=== PATIENT | female | born 2000 | race Caucasian/White ===

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

== ENCOUNTER 2022-05-06 12:05 | Emergency (ER) | payer OTHER, SELFPAY ==
[2022-05-06 12:06] VITALS: BP 122/68; PULSE 100; RESP 16; TEMP 37; O2SAT 98; BMI 21.7
[2022-05-06 12:30] VITALS: BP 113/69; PULSE 103; RESP 20; O2SAT 100
[2022-05-06 12:30] LABS: Microscopic, Urine URINE MICROSCOPIC (MICROSCOPIC)
[2022-05-06 12:39] LABS: Appearance,Urine CLEAR (Clear); Bilirubin,Urine Negative (Negative); Blood, Urine Negative (Negative); Color,Urine YELLOW (Yellow); Glucose,Urine (UA) Negative (Negative); Ketones,Urine Negative (Negative); Leukocyte Esterase,Urine 1+ (Negative); Nitrate,Urine Negative (Negative); Protein,Urine Negative (Negative); Specific Gravity, Urine >= 1.030 (1.005-1.030); Urobilinogen,Urine 0.2 EU/dl (0.2)
[2022-05-06 12:40] LABS: Urine Pregnancy, HCG Qual. Negative (Negative)
[2022-05-06 12:51] LABS: Bacteria,Urine Trace /lpf
[2022-05-06 12:53] LABS: Basophils % 0.5 % (0.1-2.0); Eosinophils # 0.2 K/mm3 (0.0-0.4); Hematocrit 41.5 % (37.0-47.0); Hemoglobin 13.7 g/dL (12.2-16.2); Lymphocytes # 1.5 K/mm3 (0.7-4.5); Lymphocytes % 28.8 % (10-50); Mean Corpuscular HGB Conc 32.9 g/dL (31.8-35.4); Mean Corpuscular Hemoglobin 30.3 pg (27.0-31.2); Mean Corpuscular Volume 91.9 fl (81-99); Monocytes # 0.3 K/mm3 (0.1-1.0); Monocytes % 5.5 % (1.7-9.3); Neutrophils # 3.2 K/mm3 (1.8-7.8); Neutrophils % 62.3 % (37.0-80.0); Platelet Count 151 K/mm3 (142-424); Red Blood Count 4.52 M/mm3 (4.20-5.40); Red Cell Distribution Width 13.9 % (11.5-17.5); White Blood Count 5.2 K/mm3 (4.5-13.0)
--- NOTE | 2022-05-06 13:08 | PC.NURSE ---
Linda Bradshaw rounded on pt , no needs at this time
[2022-05-06 13:09] LABS: Chloride 102 mmol/L (98-107)
[2022-05-06 13:10] LABS: Potassium 3.8 mmoL/L (3.5-5.1); Sodium 138 mmol/L (136-145)
[2022-05-06 13:12] LABS: Alanine Aminotransferase 41 U/L (12-78); Amylase 85 U/L (30-110); Anion Gap 12.8 mEq/L (5-15); Aspartate Amino Transferase 48 U/L (14-36); Blood Urea Nitrogen 11 mg/dl (7-17); Carbon Dioxide 27 mmol/L (22.0-30.0); Creatinine Clearance Estimated 103 mL/min (50-200); Estimated Glomerular Filt Rate 108 ml/min (>60); GFR (African American) 130 ML/MIN (>60)
[2022-05-06 13:13] LABS: Albumin Level 4.3 g/dl (3.5-5.0); Albumin/Globulin Ratio 1.6 (1.1-1.8); Alkaline Phosphatase 65 U/L (38-126); Bilirubin,Total 0.5 mg/dl (0.2-1.3); Calcium 8.6 mg/dl (8.4-10.2); Globulin 2.7 g/dL (1.3-3.2); Glucose 80 mg/dl (74-100); Lipase 68 U/L (23-300)
--- NOTE | 2022-05-06 13:39 | HMH.EDGENADL ---
Discharge Plan Disposition Patient Disposition: Home, Self-Care Condition: Good Referrals Follow up/Referrals: Mohan Kirkpatrick MD [Primary Care Provider] - See instructions Activity Restrictions/Add. Instructions Additional Instructions/Restrictions: MiraLAX as prescribed. Urine culture has been performed, results generally take 2 to 3 days. Follow-up the results of this test with your primary care provider within 2 to 3 days. Additional instructions for ABDOMINAL PAIN: See your physician as soon as possible for further evaluation. Return immediately if worsening abdominal pain, vomiting, shortness of breath, fever, vomiting of blood or abdominal distention. Clinical Impressions Clinical Impression: Abdominal pain Instructions Patient Instructions: DI for Acute Abdominal Pain Discharge ED Provider: Layton Whitlock General Adult HPI General Chief complaint: Abdominal Pain Stated complaint: abdominal pain Time Seen by Provider: 05/06/22 13:30 Mode of Arrival: Ambulatory Source of Information: Patient Limitations: No Limitations Description of Symptoms (Recalled from ER Triage Doc. by RN): Pt c/o RLQ pain since last night before laying down to go to bed. Denies N/V/D. Pt states that she has not had a BM x2 days. History of Present Illness HPI narrative: Complains of lower abdominal pain that began last night. No nausea, vomiting, diarrhea. No fever. No urinary symptoms. No change in appetite. Last bowel movement 2 days ago. Patient says that she thinks her current pain might be due to constipation or irritable bowel syndrome. She says she has had the same pain recurrently in the past and has had a work-up including a CT scan. She says that since laying here in the emergency department her pain has gone away. No prior abdominal surgeries. Related Data Allergies Allergy/AdvReac Type Severity Reaction Status Date / Time Codeine Allergy Intermediate I-RASH Uncoded 07/21/17 15:13 Ibuprofen Allergy Intermediate I-RASH Uncoded 07/21/17 15:13 [facility] Social History Smoking Status: Never smoker alcohol intake: never current occupational status: employed Travel in the last 8 weeks: None ROS Obtained: Yes Systems reviewed as appropriate & no additional complaints except as documented Constitutional Constitutional: Denies fever(s) Gastrointestinal Gastrointestingal: Reports abdominal pain and constipation; Denies diarrhea, nausea or vomiting Genitourinary Female Genitourinary: Denies difficulty voiding, Denies dysuria and Denies flank pain Musculoskeletal Musculoskeletal: Denies numbness Neurologic Neurologic: Denies numbness Physical Exam General General appearance: alert and in no apparent distress Head Head exam: atraumatic and normocephalic Eye Eye exam: Present normal appearance and EOMI ENT ENT exam: Present mucous membranes moist Neck Neck exam: Present normal inspection and trachea midline Chest Chest inspection: Present normal inspection and symmetric chest wall rise Respiratory Respiratory exam: Present normal lung sounds bilaterally; Absent respiratory distress Cardiovascular Cardiovascular exam: Present regular rate, normal rhythm and normal heart sounds Abdominal Exam Abdominal exam: Present soft, tenderness and hyperactive bowel sounds; Absent distention, guarding, rebound or rigidity Abdominal tenderness: Present RLQ, LLQ and suprapubic Extremities Exam Extremities exam: Present normal inspection Neurological Exam Neurological exam: Present alert and oriented X3 Psychiatric Psychiatric exam: Present normal affect and normal mood Skin Skin exam: Present warm and dry Medical Decision Making Pierce Inquiry Pt receiving controlled substance: No Vital Signs: 05/06/22 12:06 05/06/22 12:30 Temperature 98.6 F Temperature Source Oral Pulse Rate 103 H Pulse Rate [Right Radial] 100 H Respiratory Rate 16 20 Blood Pressure 113/69 Blood Pressure [Right Arm] 1
[2022-05-06 13:47] VITALS: BP 119/65; PULSE 102; RESP 18; TEMP 36.8; O2SAT 98
== END 2022-05-06 13:49 | disposition home or self-care (01) ==
PROVIDERS: Emergency Provider Emergency Medicine; PCP Internal Medicine Adolescent Medicine
DX: R10.30 Lower abdominal pain, unspecified (principal); Z88.6 Allergy status to analgesic agent
CPT/HCPCS: 80053; 81001; 81025; 82150; 83690; 85025; 87086; 99282

== ENCOUNTER 2022-05-12 14:06 | Emergency (ER) | payer OTHER, SELFPAY ==
[2022-05-12 15:00] VITALS: BP 113/65; PULSE 101; RESP 19; TEMP 37.3; O2SAT 99; BMI 21.4
--- NOTE | 2022-05-12 15:23 | EXP.UTC ---
Discharge Plan Disposition Patient Disposition: Home, Self-Care Condition: Good Prescriptions Prescriptions: New amoxicillin 500 mg tablet 500 mg PO TID Qty: 30 0RF fluticasone propionate [Flonase Allergy Relief] 50 mcg/actuation spray,suspension 1 spray intranasal DAILY Qty: 16 0RF Rx Instructions: administer into each nostril Referrals Follow up/Referrals: Mohan Kirkpatrick MD [Primary Care Provider] - See instructions Activity Restrictions/Add. Instructions Additional Instructions/Restrictions: Take medication as prescribed Return if needed Straight to ER if any life threatening symptoms Follow up with Family Doctor if no improvement or any worsening of symptoms Clinical Impressions Clinical Impression: Otitis media Instructions Patient Instructions: Middle Ear Infection, Amoxicillin Discharge ED Provider: Shaye Gonsalez [facility] General Stated complaint: LT ear pain Mode of Arrival: Ambulatory Source of Information: Patient Limitations: No Limitations Time Seen by Provider: 05/12/22 15:23 Description of Symptoms (Recalled from Triage Doc. by RN): PATIENT C/O LEFT INNER EAR PAIN THAT STARTED THIS MORNING HEENT Symptoms (Recalled from RN notes): Yes Resp Symptoms (Recalled from RN notes): No Skin Symptoms (Recalled from RN notes): No MS Symptoms (Recalled from RN notes): No Functional Status (Recalled from RN notes): WNL History of Present Illness Provider Complaint: Patient states that she has been having pain in her left ear on and off and worse this morning states that now her left ear is throbbing so she came in to get it cehcked out Related Data Previous Rx's Medication Instructions Recorded amoxicillin 500 mg tablet 500 mg PO TID #30 tabs 05/12/22 fluticasone propionate 50 1 spray intranasal DAILY #16 grams 05/12/22 mcg/actuation nasal spray,suspension (Flonase Allergy Relief) Allergies Allergy/AdvReac Type Severity Reaction Status Date / Time codeine Allergy Verified 05/12/22 15:11 ibuprofen Allergy Verified 05/12/22 15:11 Worker's Comp Is this a Worker's Comp case?: No [facility] Medical History (Updated 05/12/22 @ 15:35 by Shaye Gonsalez APRN) No significant past medical history Social History (Updated 05/12/22 @ 15:11 by Anna Palma RN) Smoking Status: Never smoker alcohol intake: never current occupational status: employed Travel in the last 8 weeks: None ROS Obtained: Yes All systems reviewed & no additional complaints except as documented and Yes Systems reviewed as appropriate & no additional complaints except as documented Constitutional Constitutional: Reports system reviewed and no additional complaints, except as documented and Reports as per HPI ENT Ears, Nose, Mouth, and Throat: Reports system reviewed and no additional complaints, except as documented, Reports as per HPI and Reports otalgia Cardiovascular Cardiovascular: Reports system reviewed and no additional complaints, except as documented and Reports as per HPI Respiratory Respiratory: Reports system reviewed and no additional complaints, except as documented and Reports as per HPI Musculoskeletal Musculoskeletal: Reports system reviewed and no additional complaints, except as documented and Reports as per HPI Physical Exam General General appearance: alert and in no apparent distress Expanded ENT Exam TM/Canal exam: Left TM: erythema and loss of landmarks Respiratory Respiratory exam: Present normal lung sounds bilaterally; Absent respiratory distress or wheezes Cardiovascular Cardiovascular exam: Present regular rate, normal rhythm and normal heart sounds Neurological Exam Neurological exam: Present alert, oriented X3 and normal gait Medical Decision Making Pierce Inquiry Pt receiving controlled substance: No Pierce was queried for this patient: No Vital Signs: 05/12/22 15:00 Temperature 99.1 F Temperature Source Oral Pulse Rate [Right Brachial] 10
[2022-05-12 15:34] VITALS: BP 113/65; PULSE 101; RESP 19; TEMP 37.3; O2SAT 99
== END 2022-05-12 15:37 | disposition home or self-care (01) ==
PROVIDERS: Emergency Provider Nurse Practitioner; PCP Internal Medicine Adolescent Medicine
DX: H66.92 Otitis media, unspecified, left ear (principal); Z79.51 Long term (current) use of inhaled steroids; Z88.5 Allergy status to narcotic agent; Z88.6 Allergy status to analgesic agent
CPT/HCPCS: 99213; G0463

== ENCOUNTER 2022-07-24 18:41 | Emergency (ER) | payer OTHER, SELFPAY ==
--- NOTE | 2022-07-24 18:54 | EXP.UTC ---
Discharge Plan Disposition Patient Disposition: Home, Self-Care Condition: Good Prescriptions Prescriptions: New ondansetron 4 mg Tablet,Disintegrating 4 mg PO Q8H PRN (Reason: Nausea) Qty: 20 0RF Discontinued amoxicillin 500 mg tablet 500 mg PO TID Qty: 30 0RF No Action fluticasone propionate [Flonase Allergy Relief] 50 mcg/actuation spray,suspension 1 spray intranasal DAILY Qty: 16 0RF Rx Instructions: administer into each nostril Referrals Follow up/Referrals: Mohan Kirkpatrick MD [Primary Care Provider] - See instructions Activity Restrictions/Add. Instructions Additional Instructions/Restrictions: Drink plenty of fluids. Take tylenol or ibuprofen for pain or fever. Follow up with your regular doctor. GO TO THE ER FOR ANY WORSENING SYMPTOMS I will watch for your cbc results to come back and call you with them in an hour or so when they are back. Clinical Impressions Clinical Impression: Fatigue, Light headedness, Viral syndrome Stand Alone Forms Stand Alone Forms: Work/School Release Instructions Patient Instructions: DI for Viral Syndrome, DI for Dizziness-Nonvertigo Discharge ED Provider: Donnie Clay [facility] General Stated complaint: nausea, light-headed,weak Time Seen by Provider: 07/24/22 18:54 History of Present Illness Provider Complaint: She states that she has had light headedness, fatigue, malaise and she has felt bad for the past 2 days. She is worried about being anemic because she has had that in the past and she kind of felt like she does now. She denies any source of bleeding other than her periods. She states that she does have heavy periods though. Related Data Previous Rx's Medication Instructions Recorded fluticasone propionate 50 1 spray intranasal DAILY #16 grams 05/12/22 mcg/actuation nasal spray,suspension (Flonase Allergy Relief) ondansetron 4 mg disintegrating 4 mg PO Q8H PRN Nausea #20 tabs 07/24/22 tablet Allergies Allergy/AdvReac Type Severity Reaction Status Date / Time codeine Allergy Verified 07/24/22 19:03 ibuprofen Allergy Verified 07/24/22 19:03 [facility] Disclaimer: The information contained in this section may have been updated after the patient was seen, as this information can be updated by other users. Medical History No significant past medical history Social History Smoking Status: Never smoker alcohol intake: never current occupational status: employed Travel in the last 8 weeks: None ROS Obtained: Yes All systems reviewed & no additional complaints except as documented Constitutional Constitutional: Denies chills and Denies fever(s) Eyes Eyes: Denies eye discharge ENT Ears, Nose, Mouth, and Throat: Reports as per HPI, Reports dizziness, Denies otalgia and Denies sore throat Cardiovascular Cardiovascular: Denies chest pain Respiratory Respiratory: Denies shortness of breath, Denies chest congestion, Denies cough, Denies stridor and Denies wheezing Gastrointestinal Gastrointestingal: Denies nausea or vomiting Musculoskeletal Musculoskeletal: Reports system reviewed and no additional complaints, except as documented and Denies arthralgias Integumentary/Breasts Skin/Breast: Denies rash Neurologic Neurologic: Reports dizziness and Denies paresthesias Allergic/Immunologic Allergic/Immunologic: Denies wheezing Physical Exam General General appearance: alert and in no apparent distress Head Head exam: atraumatic, normocephalic and normal inspection Eye Eye exam: Present normal appearance, PERRL and EOMI ENT ENT exam: Present normal exam, normal oropharynx, mucous membranes moist, TM's normal bilaterally and normal external ear exam Neck Neck exam: Present normal inspection, full ROM and trachea midline; Absent meningismus or lymphadenopathy Chest Chest inspection: Pres
[2022-07-24 19:01] VITALS: BP 109/63; PULSE 81; RESP 16; TEMP 36.9; O2SAT 100; BMI 22.6
[2022-07-24 19:05] LABS: UTC Influenza A Antigen Negative (Negative)
[2022-07-24 19:06] LABS: UTC Influenza B Antigen Negative (Negative)
--- NOTE | 2022-07-24 20:04 | ECG_ITS ---
APPROVED REPORT Exam: Resting ECG HR:72 bpm ECG Measurements Heart Rate 72 AXES W[place] 123 P 70 QRSd 82 QRS 71 QT 366 T 39 QTc 389 Conclusion SINUS RHYTHM POSSIBLE RIGHT VENTRICULAR CONDUCTION DELAY [RSR (QR) IN V1/V2] BORDERLINE ECG UNCONFIRMED REPORT Electronically signed by : Mohan Kirkpatrick MD 07/25/2022 09:44:47
[2022-07-24 20:07] LABS: MANUAL DIFFERENTIAL MANUAL DIFFERENTIAL (MANUAL DIFF)
[2022-07-24 20:15] LABS: Basophils # 0.1 K/mm3 (0-0.2); Basophils % 1.3 % (0.1-2.0); Eosinophils # 0.2 K/mm3 (0.0-0.4); Eosinophils % 3.3 % (0.1-12.0); Hematocrit 42.3 % (37.0-47.0); Lymphocytes # 1.4 K/mm3 (0.7-4.5); Lymphocytes % 24.7 % (10-50); Mean Corpuscular HGB Conc 33.1 g/dL (31.8-35.4); Mean Corpuscular Hemoglobin 29.7 pg (27.0-31.2); Mean Corpuscular Volume 89.5 fl (81-99); Mean Platelet Volume 9.1 fl (7.4-10.4); Monocytes # 0.3 K/mm3 (0.1-1.0); Monocytes % 5.9 % (1.7-9.3); Neutrophils # 3.7 K/mm3 (1.8-7.8); Neutrophils % 64.8 % (37.0-80.0); Platelet Count 194 K/mm3 (142-424); Red Blood Count 4.72 M/mm3 (4.20-5.40); Red Cell Distribution Width 13.8 % (11.5-17.5); White Blood Count 5.8 K/mm3 (4.5-13.0)
[2022-07-24 20:18] VITALS: BP 109/63; PULSE 81; RESP 16; TEMP 36.9
[2022-07-24 20:25] LABS: Adenovirus,PCR Not Detected (NotDetected); Bordetella Pertussis Not Detected (NotDetected); Chlamydophila Pneumoniae, PCR Not Detected (NotDetected); Coronavirus 19, PCR Not Detected (NotDetected); Coronavirus 229E Not Detected (NotDetected); Coronavirus NL63 Not Detected (NotDetected); Coronavirus OC43 Not Detected (NotDetected); Coronovirus HKU1,PCR Not Detected (NotDetected); Human Metapneumovirus Not Detected (NotDetected); Influenza A, PCR Not Detected (NotDetected); Influenza AH1, 2009 Not Detected (NotDetected); Influenza AH1, PCR Not Detected (NotDetected); Influenza AH3,PCR Not Detected (NotDetected); Influenza B, PCR Not Detected (NotDetected); Mycoplasma Pneumoniae, PCR Not Detected (NotDetected); Parainfluenza 1, PCR Not Detected (NotDetected); Parainfluenza 2, PCR Not Detected (NotDetected); Parainfluenza 3, PCR Not Detected (NotDetected); Parainfluenza 4, PCR Not Detected (NotDetected); Respiratory Syncytial Virus Not Detected (NotDetected); Rhinovirus/Enterovirus Not Detected (NotDetected)
[2022-07-24 21:02] LABS: Eosinophils % 4 % (0-3); Lymphocytes % 33 % (10-50); Monocytes % 1 % (2-9); Neutrophils % 62 % (42-76); Total Cells Counted 100
[2022-07-24 21:03] LABS: Platelet Estimate Normal; RBC Morphology Normal
== END 2022-07-24 20:22 | disposition home or self-care (01) ==
PROVIDERS: Emergency Provider Nurse Practitioner Family; PCP Internal Medicine Adolescent Medicine
DX: R53.83 Other fatigue (principal); R42 Dizziness and giddiness; B34.9 Viral infection, unspecified
CPT/HCPCS: 85007; 85014; 85018; 85048; 85049; 87581; 87632; 87798; 87804; 93005; 99212; C9803; G0463; U0003; U0005